=== PATIENT | male | born 1985 | race Caucasian/White ===

== ENCOUNTER 2022-04-27 10:07 | Emergency (ER) | payer OTHER ==
[2022-04-27 11:07] VITALS: BP 151/90; PULSE 57; RESP 18; TEMP 97.6; BMI 28.5
== END 2022-04-27 11:21 | disposition home or self-care (01) ==
LOC: JERFT 10:07
DX: S61.206A Unspecified open wound of right little finger without damage to nail, initial encounter (principal); W26.0XXA Contact with knife, initial encounter
CPT/HCPCS: 99281-25